=== PATIENT | female | born 2005 | race Caucasian/White ===

== ENCOUNTER 2023-12-13 23:42 | Emergency (ER) | payer MEDICAID ==
[~2023-12-13] VITALS: Ht 177.8 cm; Wt 81.6 kg
--- NOTE | 2023-12-13 23:49 | NUR ---
[id number] FROM HOME C/O NAUSEA "FELT LIKE BLOOD SUGAR WAS LOW @2245" EMS BS 165. PT A/OX4. TOLERATING R/A WELL WITH NO RESP DISTRESS. SAFETY MEASURES IN PLACE. AMB WITH STEADY GAIT
--- NOTE | 2023-12-14 00:34 | NUR ---
JOHN 98; DR HALEY DO AWARE
--- NOTE | 2023-12-14 00:42 | NUR ---
PHLEBOTMIST AT PT'S BEDSIDE
[2023-12-14 01:02] LABS: BASOPHILS % (AUTO) 0.4 % (0.0-2.0); EOSINOPHILS % (AUTO) 0.7 % (0.0-6.0); HEMATOCRIT 35 % (33-45); HEMOGLOBIN 11.1 g/dL (11.5-14.8); LYMPHOCYTES # (AUTO) 2.1 K/uL (0.8-4.8); LYMPHOCYTES % (AUTO) 32.5 % (20.0-44.0); MEAN CORPUSCULAR HEMOGLOBIN 23 PG (26.0-33.0); MEAN CORPUSCULAR HGB CONC 32 g/dl (31.0-36.0); MEAN CORPUSCULAR VOLUME 70 fL (82-100); MONOCYTES # (AUTO) 0.4 K/uL (0.1-1.30); MONOCYTES % (AUTO) 6.1 % (2.0-12.0); NEUTROPHILS # (AUTO) 3.8 K/uL (1.8-8.9); NEUTROPHILS % (AUTO) 60.3 % (43.0-81.0); PLATELET COUNT (AUTO) 309 K/uL (150-450); RED BLOOD CELL COUNT(AUTO) 4.92 MIL/uL (4.0-5.2); WHITE BLOOD COUNT (AUTO) 6.3 K/uL (4.3-11.0)
--- NOTE | 2023-12-14 01:03 | NUR ---
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
--- NOTE | 2023-12-14 01:14 | NUR ---
XRAY AT PT'S BEDSIDE
[2023-12-14 01:24] LABS: CALCIUM, SERUM 9.3 mg/dL (8.5-10.1); CARBON DIOXIDE 25 mmol/L (21-32); CHLORIDE 103 mmol/L (98-107); CREATININE 0.8 mg/dL (0.6-1.3); GLUCOSE 106 mg/dL (74-106); POTASSIUM 3.6 mmol/L (3.5-5.1); SODIUM SERUM 139 mmol/L (136-145); UREA NITROGEN, BLOOD 10 mg/dL (7-18)
[2023-12-14 01:29] LABS: ALANINE AMINOTRANSFERASE 24 U/L (12-78); ALBUMIN 3.8 g/dL (3.4-5.0); ALKALINE PHOSPHATASE 66 U/L (46-116); ASPARTATE AMINOTRANSFERASE 11 U/L (15-37); BILIRUBIN,DIRECT 0.1 mg/dL (0.0-0.2); BILIRUBIN,TOTAL 0.3 mg/dL (0.2-1.0)
--- NOTE | 2023-12-14 02:33 | NUR ---
Patient discharged to home in stable condition. Written and verbal after care instructions given. Patient verbalizes understanding of instruction.
[2023-12-14 02:34] VITALS: BP 102/66; TEMP 97.1; O2SAT 98
== END 2023-12-14 02:40 | disposition home or self-care (01) ==
LOC: ER 23:55
DX: R55 Syncope and collapse (principal); R53.1 Weakness; R00.2 Palpitations
CPT/HCPCS: 36415; 71045-TC; 80048-TC; 80076-TC; 82962-TC; 84484-TC; 85025-TC; 85378-TC